=== PATIENT | male | born 1975 | race Caucasian/White ===

== ENCOUNTER 2016-05-25 01:54 | Emergency (ER) | payer OTHER ==
--- NOTE | 2016-05-25 06:30 | DIAGNOSTIC IMAGING REPORT ---
PROCEDURE: XR CHEST 2 VIEW INDICATION: CHEST PAIN TECHNIQUE: PA and lateral view. COMPARISON: None. FINDINGS: Poor inspiration with minor left basilar atelectasis. Cardiovascular structures are normal. Bony thorax is unremarkable. IMPRESSION: 1. Poor inspiration with minor left basilar atelectasis.
--- NOTE | 2016-05-25 07:22 | DIAGNOSTIC IMAGING REPORT ---
PROCEDURE: US ABDOMEN ULTRASOUND-LIMITED INDICATION: RUQ PAIN, initial encounter TECHNIQUE: Pate scale and color Doppler sonographic images of the abdomen were obtained. COMPARISON: None. FINDINGS: Normal gallbladder and CBD (4.2 mm). Liver and pancreas are normal. Aorta and IVC are patent. Right kidney measures 10.1 cm and has a normal appearance. IMPRESSION: 1. Negative right upper quadrant ultrasound
--- NOTE | 2016-05-25 07:30 | DIAGNOSTIC IMAGING REPORT ---
PROCEDURE: CT ABD/PELVIS WITH CONTRAST CLINICAL INDICATION: Right upper quadrant ultrasound TECHNIQUE: 135 ml of Isovue 300 were injected intravenously and axial images were obtained of the entire abdomen and pelvis with sagittal and coronal reformations. COMPARISON: Right upper quadrant ultrasound 05/25/2016. FINDINGS: ABDOMEN: Mild bibasilar scarring/atelectasis. Normal heart size. Liver, gallbladder, pancreas, spleen (splenule), adrenal glands and kidneys are unremarkable. Normal abdominal aorta. There is some thickening of the gastric wall. Nonspecific bowel gas pattern. PELVIS: Status post appendectomy. Distended bladder. Normal prostate. No pelvic mass, inflammatory changes or free fluid. Moderate L5-S1 degenerative changes. IMPRESSION: 1. Mild thickening of the gastric wall. Consider gastritis. 2. Appendectomy 3. Distended bladder 4. Results discussed with Dr. Hood All CT scans at this facility use dose modulation, iterative reconstruction, and/or weight-based dosing when appropriate to reduce radiation dose to as low as reasonably achievable.
--- NOTE | 2016-05-25 07:44 | ED CLINICAL REPORT ---
Clinical Report - Physicians/Mid Levels [facility] [address] [place] [address] 05/25/2016 1:56 Patient: ANGIE PAUL Time Seen: 02:18 May 25 2016. Arrived- By private vehicle. Historian- patient. CPT: ER phys charges level 4 (#[id number]). HISTORY OF PRESENT ILLNESS Chief Complaint: ABDOMINAL PAIN. At its maximum, severity described as 8 / 10. When seen in the E.D., severity described as 8 / 10. Modifying factors- worsened by movement. Relieved by rest. This started last night This is a new problem and onset was abrupt. (1700). He has had abdominal pain. ( denies any n/v/d). and is still present. It is described as "pain" and it is described as located in the right upper quadrant and epigastric area. The patient has had nausea and loss of appetite. No vomiting or diarrhea. No recent travel. Similar symptoms previously: Several times, milder (for 2 years). Evaluation/treatment: sonogram. Diagnosis: (Fatty liver). Recent medical care: Not recently seen/assessed. REVIEW OF SYSTEMS No constipation, black stools, hematemesis, difficulty with urination or urinary frequency. No fever, sore throat, chest pain, difficulty breathing or cough. No joint pain, skin rash, chills or back pain. All systems otherwise negative, except as recorded above. PAST HISTORY Appendectomy. Problems: no known problems. Medications: None. Allergies: Amoxicillin. SOCIAL HISTORY Never smoker. No alcohol use or drug use. ADDITIONAL NOTES The nursing notes have been reviewed. PHYSICAL EXAM Vital Signs: 05/25/2016 02:06 BP: 160/96. HR: 87. RR: 22. O2 saturation: 100%. Temp: 97.9 F. Appearance: Alert. Appears to be in pain. Patient in moderate distress. Eyes: Eyes normal inspection. ENT: Pharynx normal. Neck: Normal inspection. CVS: Normal heart rate and rhythm. Heart sounds normal. Pulses normal. Respiratory: No respiratory distress. Breath sounds normal. Chest nontender. Abdomen: Soft. Moderate tenderness in the upper abdomen, right upper quadrant and epigastric area with guarding present. Positive Mariano's sign. Abnormal bowel sounds: diminished. No mass. Back: Normal inspection. No CVA tenderness. Skin: Skin warm. Normal skin color. No rash. Extremities: Extremities exhibit normal ROM. No calf tenderness. No lower extremity edema. Neuro: Oriented X 3. No motor deficit. No sensory deficit. Reflexes normal. LABS, X-RAYS, AND EKG Abdominal Sonogram: No acute disease. Laboratory Tests: CBC w Diff: (SULMA: 05/25/2016 02:40) ( MsgRcvd 05/25/2016 02:49) Final results Test Result Flag Units (Reference) WHITE BLOOD COUNT 7.2 K/uL (4.5-11.5) RED BLOOD COUNT 4.53 M/uL (4.50-5.90) HEMOGLOBIN 13.9 gm/dL (13.5-17.5) HEMATOCRIT 40.5 L % (41.0-53.0) MEAN CELL VOLUME 90 fL (80-100) MEAN CORPUSCULAR HGB 31 pg (26-34) MEAN CORPUSCULAR HGB CONC 34 g/dL (31-37) RED CELL DISTRIBUTION WIDTH 13.1 % (11.6-14.8) PLATELET COUNT 291 K/uL (150-400) NEUTROPHIL % 45.3 L % (50-75) LYMPH % 38.6 % (25-40) MONO % 9.6 % (3-14) EOSINOPHIL % 5.7 H % (0-4) BASOPHIL % 0.8 % (0-2) [id number]: (SULMA: 05/25/2016 02:40) ( Mscvd 05/25/2016 03:42) Final results Test Result Flag Units (Reference) D-DIMER QUANTITATIVE < 0.27 L ug/mLFEU (0.27-0.52) The primary value of this quantitative assay relates toits negative predictive value (i.e. exclusion) of pulmonaryembolism/deep vein thrombosis/DIC.Elevated levels of d-dimer may also occur with:, age, cancer, inflammation, liver disease,post-op, infection, hematoma, coronary disease, peripheralarteriopathy, bleeding disorders and thrombolytic treatment.Results should be correlated with other clinical andradiological data.Testing Methodology: Latex Immunoassay [id number]: (SULMA: 05/25/2016 02:40) ( MsgRcvd 05/25/2016 03:51) Final results Test Result Flag Units (Reference) C-REACTIVE PROTEIN < 0.2 mg/dL (0.0-0.9) CMP: (SULMA: 05/25/2016 02:40) ( MsgRcvd 05/25/2016 03:18) Final results Test Result Flag Units (Reference) GLUCOSE 95 mg/dL (70-110) BUN 14 mg/dL (7-18) CREATININE 0.9 mg/dL (0.6-1.3) Estimated GFR >60 mL/min Estimated GFR- >60 mL/min Note: Persistent reduction over 3 months in eGFR<60 mL/min/1.73 m2 defines CKD. Patients with eGFR values>=60 mL/min/1.73 m2 may also have CKD if evidence ofpersistent proteinuria. Additional information may be foundat www.kidney.org. SODIUM 143 mmol/L (136-145) POTASSIUM 3.6 mmol/L (3.5-5.1) CHLORIDE 105 mmol/L (98-107) CARBON DIOXIDE 25 mmol/L (21-32) CALCIUM 8.6 mg/dL (8.5-10.1) TOTAL PROTEIN 7.6 g/dL (6.4-8.2) ALBUMIN 4.1 g/dL (3.3-5.0) BILIRUBIN, TOTAL 0.4 mg/dL (0.0-1.0) ALKALINE PHOSPHATASE 85 U/L (46-116) AST (SGOT) 16 U/L (15-37) ALT (SGPT) 32 U/L (12-78) LIPASE 110 U/L (73-393) AMYLASE 28 U/L (25-115) . PROGRESS AND PROCEDURES Course of Care: IV NS Demerol 12.5 mg IV times 3 Phenergan 12.5 mg IV White GI cocktail and is some better. Protonix 40 mg PO Carafate 20 ml po Patient is stable. Symptoms better. Patient/family counseled. Disposition: Discharged. Condition: stable. CLINICAL IMPRESSION Acute gastritis. No alcoholic gastritis or hemorrhagic gastritis. INSTRUCTIONS Avoid alcohol and NSAIDS. NSAIDS include aspirin, ibuprofen (Advil) and naproxen (Aleve). Avoid spicy foods. caffeine. Warnings: Further evaluation is necessary. GENERAL WARNINGS: Return or contact your physician immediately if your condition worsens or changes unexpectedly, if not improving as expected, or if other problems arise. Prescription Medications: Hydrocodone/APAP 5mg/325mg: take 1 to 2 orally every 6 hours as needed for pain. Dispense fifteen (15). No refills. Carafate 1 gm tablets: take 1 orally four times daily (1 hour before meals and at bedtime). Dispense sixty (60). No refills. Substitution is permissible. Prilosec 40 mg capsules: take 1 capsule orally every day for 10 days. Dispense ten (10). No refill. Substitution is permissible. Follow-up: Follow up with your doctor in five days. Call for an appointment. Understanding of the discharge instructions verbalized by patient and family. (Electronically signed by Ba Hood MD 05/27/2016 23:11)
--- NOTE | 2016-05-25 07:44 | ED ORDER SUMMARY ---
..... Patient: ANGIE PAUL OrderSheet [facility] VisitID: [id number] [address] [place] [address] 40y, M Registration Date/Time: 05/25/2016 ORDER SHEET Weight: 108.8 kg (stated) Allergies: Amoxicillin GENERAL ORDERS: US Abdomen Limited (Yes) Urgent (02:25 05/25/2016 Leyla WILD) (Ack 2:53 ALawrence ER Tech1) (3:02 TLewis R.N.) CBC w Diff Urgent (02:26 05/25/2016 Leyla WILD) (2:40 TLewis R.N.) CMP Urgent (02:26 05/25/2016 Leyla WILD) (2:40 TLewis R.N.) Amylase Urgent (02:26 05/25/2016 Leyla WILD) (2:40 TLewis R.N.) Lipase Urgent (02:26 05/25/2016 Leyla WILD) (2:40 TLewis R.N.) D-Dimer Urgent (03:27 05/25/2016 Leyla WILD) (3:32 ALawrence ER Tech1) CRP Urgent (03:27 05/25/2016 Leyla WILD) (3:32 ALawrence ER Tech1) Chest 2V Urgent (03:53 05/25/2016 Leyla WILD) (4:01 TLewis R.N.) CT Abd/Pel w Cont (No) (N/A) Urgent (05:21 05/25/2016 Leyla WILD) (Ack 5:28 ALawrence ER Tech1) (6:58 TLewis R.N.) MEDICATION ORDERS: Phenergan IV 12.5 mg (NOW) (02:26 05/25/2016 Leyla WILD) (2:37 TLewis R.N.) GI Cocktail WHITE PO 50 mL (NOW) (04:33 05/25/2016 Leyla WILD) (4:40 TLewis R.N.) Carafate PO 20 ml (NOW) (07:44 05/25/2016 Leyla WILD) (Ack 7:48 Josefina R.N.) (8:02 Josefina R.N.) Protonix PO 40 mg (NOW) (07:44 05/25/2016 Lelya WILD) (Ack 7:48 Josefina R.N.) (8:01 Josefina R.N.) IV FLUIDS: IV NS : initial bolus none -, then 250 mL/hr for 4h (NOW); Routine (02:25 05/25/2016 Leyla WILD) (2:51 TLewis R.N.) Demerol IV 12.5 mg (NOW) (Sched q10m for X2); Routine (prn) (Sched q10m for X2) (02:25 05/25/2016 Leyla WILD) (2:40 TLewis R.N.) Demerol IV 12.5 mg (NOW) (Sched q10m for X2); Routine (prn) (02:35 05/25/2016 Leyla WILD) (3:36 TLewis R.N.) Demerol IV 12.5 mg (NOW) (05:21 05/25/2016 Leyla WILD) (5:25 TLewis R.N.) ORDER SHEET NOTES: [Electronically signed by Angie Canales R.N. (08:44 05/25/2016)] [Electronically signed by Ba Hood MD (23:11 05/27/2016)] [Electronically locked/signed by Angie Canales R.N. (08:44 05/25/2016)]
--- NOTE | 2016-05-25 07:44 | ED CLINICAL REPORT ---
Clinical Report - Physicians/Mid Levels [facility] [address] [place] [address] 05/25/2016 1:56 Patient: ANGIE PAUL Time Seen: 02:18 May 25 2016. Arrived- By private vehicle. Historian- patient. CPT: ER phys charges level 4 (#[id number]). HISTORY OF PRESENT ILLNESS Chief Complaint: ABDOMINAL PAIN. At its maximum, severity described as 8 / 10. When seen in the E.D., severity described as 8 / 10. Modifying factors- worsened by movement. Relieved by rest. This started last night This is a new problem and onset was abrupt. (1700). He has had abdominal pain. ( denies any n/v/d). and is still present. It is described as "pain" and it is described as located in the right upper quadrant and epigastric area. The patient has had nausea and loss of appetite. No vomiting or diarrhea. No recent travel. Similar symptoms previously: Several times, milder (for 2 years). Evaluation/treatment: sonogram. Diagnosis: (Fatty liver). Recent medical care: Not recently seen/assessed. REVIEW OF SYSTEMS No constipation, black stools, hematemesis, difficulty with urination or urinary frequency. No fever, sore throat, chest pain, difficulty breathing or cough. No joint pain, skin rash, chills or back pain. All systems otherwise negative, except as recorded above. PAST HISTORY Appendectomy. Problems: no known problems. Medications: None. Allergies: Amoxicillin. SOCIAL HISTORY Never smoker. No alcohol use or drug use. ADDITIONAL NOTES The nursing notes have been reviewed. PHYSICAL EXAM Vital Signs: 05/25/2016 02:06 BP: 160/96. HR: 87. RR: 22. O2 saturation: 100%. Temp: 97.9 F. Appearance: Alert. Appears to be in pain. Patient in moderate distress. Eyes: Eyes normal inspection. ENT: Pharynx normal. Neck: Normal inspection. CVS: Normal heart rate and rhythm. Heart sounds normal. Pulses normal. Respiratory: No respiratory distress. Breath sounds normal. Chest nontender. Abdomen: Soft. Moderate tenderness in the upper abdomen, right upper quadrant and epigastric area with guarding present. Positive Mariano's sign. Abnormal bowel sounds: diminished. No mass. Back: Normal inspection. No CVA tenderness. Skin: Skin warm. Normal skin color. No rash. Extremities: Extremities exhibit normal ROM. No calf tenderness. No lower extremity edema. Neuro: Oriented X 3. No motor deficit. No sensory deficit. Reflexes normal. LABS, X-RAYS, AND EKG Abdominal Sonogram: No acute disease. Laboratory Tests: CBC w Diff: (SULMA: 05/25/2016 02:40) ( MsgRcvd 05/25/2016 02:49) Final results Test Result Flag Units (Reference) WHITE BLOOD COUNT 7.2 K/uL (4.5-11.5) RED BLOOD COUNT 4.53 M/uL (4.50-5.90) HEMOGLOBIN 13.9 gm/dL (13.5-17.5) HEMATOCRIT 40.5 L % (41.0-53.0) MEAN CELL VOLUME 90 fL (80-100) MEAN CORPUSCULAR HGB 31 pg (26-34) MEAN CORPUSCULAR HGB CONC 34 g/dL (31-37) RED CELL DISTRIBUTION WIDTH 13.1 % (11.6-14.8) PLATELET COUNT 291 K/uL (150-400) NEUTROPHIL % 45.3 L % (50-75) LYMPH % 38.6 % (25-40) MONO % 9.6 % (3-14) EOSINOPHIL % 5.7 H % (0-4) BASOPHIL % 0.8 % (0-2) [id number]: (SULMA: 05/25/2016 02:40) ( Mscvd 05/25/2016 03:42) Final results Test Result Flag Units (Reference) D-DIMER QUANTITATIVE < 0.27 L ug/mLFEU (0.27-0.52) The primary value of this quantitative assay relates toits negative predictive value (i.e. exclusion) of pulmonaryembolism/deep vein thrombosis/DIC.Elevated levels of d-dimer may also occur with:, age, cancer, inflammation, liver disease,post-op, infection, hematoma, coronary disease, peripheralarteriopathy, bleeding disorders and thrombolytic treatment.Results should be correlated with other clinical andradiological data.Testing Methodology: Latex Immunoassay [id number]: (SULMA: 05/25/2016 02:40) ( MsgRcvd 05/25/2016 03:51) Final results Test Result Flag Units (Reference) C-REACTIVE PROTEIN < 0.2 mg/dL (0.0-0.9) CMP: (SULMA: 05/25/2016 02:40) ( MsgRcvd 05/25/2016 03:18) Final results Test Result Flag Units (Reference) GLUCOSE 95 mg/dL (70-110) BUN 14 mg/dL (7-18) CREATININE 0.9 mg/dL (0.6-1.3) Estimated GFR >60 mL/min Estimated GFR- >60 mL/min Note: Persistent reduction over 3 months in eGFR<60 mL/min/1.73 m2 defines CKD. Patients with eGFR values>=60 mL/min/1.73 m2 may also have CKD if evidence ofpersistent proteinuria. Additional information may be foundat www.kidney.org. SODIUM 143 mmol/L (136-145) POTASSIUM 3.6 mmol/L (3.5-5.1) CHLORIDE 105 mmol/L (98-107) CARBON DIOXIDE 25 mmol/L (21-32) CALCIUM 8.6 mg/dL (8.5-10.1) TOTAL PROTEIN 7.6 g/dL (6.4-8.2) ALBUMIN 4.1 g/dL (3.3-5.0) BILIRUBIN, TOTAL 0.4 mg/dL (0.0-1.0) ALKALINE PHOSPHATASE 85 U/L (46-116) AST (SGOT) 16 U/L (15-37) ALT (SGPT) 32 U/L (12-78) LIPASE 110 U/L (73-393) AMYLASE 28 U/L (25-115) . PROGRESS AND PROCEDURES Course of Care: IV NS Demerol 12.5 mg IV times 3 Phenergan 12.5 mg IV White GI cocktail and is some better. Protonix 40 mg PO Carafate 20 ml po Patient is stable. Symptoms better. Patient/family counseled. Disposition: Discharged. Condition: stable. CLINICAL IMPRESSION Acute gastritis. No alcoholic gastritis or hemorrhagic gastritis. INSTRUCTIONS Avoid alcohol and NSAIDS. NSAIDS include aspirin, ibuprofen (Advil) and naproxen (Aleve). Avoid spicy foods. caffeine. Warnings: Further evaluation is necessary. GENERAL WARNINGS: Return or contact your physician immediately if your condition worsens or changes unexpectedly, if not improving as expected, or if other problems arise. Prescription Medications: Hydrocodone/APAP 5mg/325mg: take 1 to 2 orally every 6 hours as needed for pain. Dispense fifteen (15). No refills. Carafate 1 gm tablets: take 1 orally four times daily (1 hour before meals and at bedtime). Dispense sixty (60). No refills. Substitution is permissible. Prilosec 40 mg capsules: take 1 capsule orally every day for 10 days. Dispense ten (10). No refill. Substitution is permissible. Follow-up: Follow up with your doctor in five days. Call for an appointment. Understanding of the discharge instructions verbalized by patient and family. (Electronically signed by Ba Hood MD 05/27/2016 23:11)
--- NOTE | 2016-05-25 07:44 | ED NURSING NOTES ---
Clinical Report - Nurses [facility] [address] [place] [address] 05/25/2016 1:56 Patient: ANGIE PAUL TRIAGE Triage time 02:07. Acuity: LEVEL 3. Chief Complaint: ABDOMINAL PAIN. --02:17 Pedro Aquino R.N. 02:06 05/25/16. BP: 160/96. HR: 87. RR: 22. O2 saturation: 100%. Temp: 97.9 F. Pain level now 11/01. --02:17 Pedro Aquino R.N. Weight: 108.8 kg stated. Height/Length: 68 inches Per Patient. BMI: 36.5. --02:15 Pedro Aquino R.N. Medications None. --02:15 Pedro Aquino R.N. Allergies Amoxicillin. --02:15 Pedro Aquino R.N. Medication/allergy information source: the patient. --02:17 Pedro Aquino R.N. History Arrived by private vehicle. Historian: patient. Accompanied by family. Primary physician (Dr. Bimal Suazo [facility]). This started today. This is a new problem and onset was abrupt. (1700). He has had abdominal pain. ( denies any n/v/d). 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 SOCIAL HX: Never smoker. No alcohol use or drug use. --02:17 Pedro Aquino R.N. PROBLEMS: no known problems. ADDITIONAL SURGERIES: Appendectomy. --02:17 Pedro Aquino R.N. Interventions ID band on patient. To treatment room. --02:17 Pedro Aquino R.N. PHYSICAL ASSESSMENT ( Sharp stabbing pain in the upper right quad that started around 1700 today. Pt denies any injury, n/v/d.). GENERAL / NEURO / PSYCH: Alert. Oriented X 4. Appears in pain. HEENT: Mucous membranes are pink. RESPIRATORY: Respirations not labored. Breath sounds within normal limits. CVS: Normal sinus rhythm noted. Capillary refill less than 2 seconds. GI / : Abdomen soft. Bowel sounds within normal limits. Normal genitalia. Stool color normal. SKIN: Skin is warm and dry. --02:18 Pedro Aquino R.N. NURSING PROGRESS NOTES Patient gowned. Two patient identifiers checked. Call light placed in reach. Side rails up x 1. Bed placed in lowest position. Brakes of bed on. --02:18 Pedro Aquino R.N. 02:36 05/25/2016 Site #1 started via IV in the right antecubital space with an 20g angiocath, with aseptic technique and good blood return; one attempt. Blood drawn: rainbow set. Labeled in the presence of the patient and sent to the lab. Saline lock flushed with 10 mL saline. --02:36 Pedro Aquino R.N. 02:37 05/25/2016 PHENERGAN (Promethazine HCl) IVP 12.5 mg given over 1 hour(s) via site #1. Allergies verified and confirmed 5 rights. IV patency established. IV site checked: no pain, redness, or swelling. IV flushed thoroughly pre- and post-medication administration. IVP given by RN. --02:37 Pedro Aquino R.N. 02:40 05/25/2016 Demerol (Meperidine HCl) IVP 12.5 mg given over 1 minute(s) via site #1. Allergies verified and confirmed 5 rights. IV patency established. IV site checked: no pain, redness, or swelling. IV flushed thoroughly pre- and post-medication administration. IVP given by RN. --02:40 Pedro Aquino R.N. ( improved pain). --02:51 Pedro Aquino R.N. 02:50 05/25/16. BP: 116/70. HR: 60. RR: 15. O2 saturation: 97%. Pain level now 06/01. --02:51 Pedro Aquino R.N. 02:51 05/25/2016 Started bag #1 1000 mL IV Fluids IV NS (Saline); at 250 mL/hr over 4 hour(s) via site #1 via IV pump. Allergies verified and confirmed 5 rights. IV patency established. IV site checked: no pain, redness, or swelling. IV flushed thoroughly pre- and post-medication administration. --02:51 Pedro Aquino R.N. ( Ultrasound is in the room.). --03:02 Pedro Aquino R.N. 03:36 05/25/2016 Demerol (Meperidine HCl) IVP 12.5 mg given over 1 minute(s) via site #1. Allergies verified and confirmed 5 rights. IV patency established. IV site checked: no pain, redness, or swelling. IV flushed thoroughly pre- and post-medication administration. IVP given by RN. --03:36 Pedro Aquino R.N. ( pt was given more pain meds due to an increase of pain during ultrasound. pt is laying in bed with at bedside.). --03:37 Pedro Aquino R.N. 03:36 05/25/16. BP: 130/89. HR: 74. RR: 15. O2 saturation: 97%. Pain level now 5/10. --03:37 Pedro Aquino R.N. Patient transported to radiology. (04:01). --04:01 Pedro Aquino R.N. Patient returned from radiology. (04:04). --04:04 Pedro Aquino R.N. 04:40 05/25/2016 GI COCKTAIL WHITE (Simethicone) PO 50 mL given. Allergies verified and confirmed 5 rights. --04:40 Pedro Aquino R.N. 04:40 05/25/16. BP: 129/85. HR: 75. RR: 18. O2 saturation: 97%. Pain level now 5/10. --04:41 Pedro Aquino R.N. 05:25 05/25/2016 Demerol (Meperidine HCl) IVP 12.5 mg given over 1 minute(s) via site #1. Allergies verified and confirmed 5 rights. IV patency established. IV site checked: no pain, redness, or swelling. IV flushed thoroughly pre- and post-medication administration. IVP given by RN. --05:25 Pedro Aquino R.N. ( Pt and were told about the delay in radiology and that the pt needs an CT scan for further diagnostic testing. Pt's pain was improved.). --06:09 Pedro Aquino R.N. Patient transported to CT. (06:49). --06:49 Pedro Aquino R.N. 07:26 05/25/16. The patient is calm. Overall patient status is the same- he states feels the same (pain is worse with movement). SKIN: Skin is warm and dry. --07:26 Angie Canales R.N. 07:23 05/25/16. BP: 128/89. HR: 73. RR: 16. O2 saturation: 97%. Temp: 98 F (oral). Pain level now: 10/01. --07:26 Angie Canales R.N. 07:55. The patient is calm and resting quietly. Overall patient status is improved- he states feels the same. SKIN: Skin is warm and dry. --08:02 Angie Canales R.N. DISPOSITION / DISCHARGE 08:05/25/2016 Site #1 removed upon discharge. Catheter intact. Bandaid applied. --08:01 Angie Canales R.N. 07:55 05/25/16. BP: 134/82. HR: 67. RR: 16. O2 saturation: 97% on room air. Temp: 98.4 F (oral). Pain level now: 06/01. --08:01 Angie Canales R.N. Departure time: 0755. Condition at departure: improved and stable. No learning barriers present. Discharge instructions provided and reviewed with the patient. Reviewed medication(s). Prescription(s) given to the patient. Patient verbalized understanding. Written instructions provided in Mongolian. The patient was discharged home and accompanied by spouse. He left the Emergency Department ambulatory and via private vehicle. --08:01 Angie Canales R.N. 08:01 05/25/2016 Protonix (Pantoprazole Sodium) PO Tablets 40 mg given. Allergies verified and confirmed 5 rights. --08:01 Angie Canales R.N. 08:02 05/25/2016 Carafate (Sucralfate) PO Oral Suspension 2 gm given. Allergies verified and confirmed 5 rights. --08:02 Angei Canales R.N. Locked/Released at 05/25/2016 8:44 by Angie Canales R.N.
--- NOTE | 2016-05-25 07:44 | ED ORDER SUMMARY ---
..... Patient: ANGIE PAUL OrderSheet [facility] VisitID: [id number] [address] [place] [address] 40y, M Registration Date/Time: 05/25/2016 ORDER SHEET Weight: 108.8 kg (stated) Allergies: Amoxicillin GENERAL ORDERS: US Abdomen Limited (Yes) Urgent (02:25 05/25/2016 Leyla WILD) (Ack 2:53 ALawrence ER Tech1) (3:02 TLewis R.N.) CBC w Diff Urgent (02:26 05/25/2016 Leyla WILD) (2:40 TLewis R.N.) CMP Urgent (02:26 05/25/2016 Leyla WILD) (2:40 TLewis R.N.) Amylase Urgent (02:26 05/25/2016 Leyla WILD) (2:40 TLewis R.N.) Lipase Urgent (02:26 05/25/2016 Leyla WILD) (2:40 TLewis R.N.) D-Dimer Urgent (03:27 05/25/2016 Leyla WILD) (3:32 ALawrence ER Tech1) CRP Urgent (03:27 05/25/2016 Leyla WILD) (3:32 ALawrence ER Tech1) Chest 2V Urgent (03:53 05/25/2016 Leyla WILD) (4:01 TLewis R.N.) CT Abd/Pel w Cont (No) (N/A) Urgent (05:21 05/25/2016 Leyla WILD) (Ack 5:28 ALawrence ER Tech1) (6:58 TLewis R.N.) MEDICATION ORDERS: Phenergan IV 12.5 mg (NOW) (02:26 05/25/2016 Leyla WILD) (2:37 TLewis R.N.) GI Cocktail WHITE PO 50 mL (NOW) (04:33 05/25/2016 Leyla WILD) (4:40 TLewis R.N.) Carafate PO 20 ml (NOW) (07:44 05/25/2016 Leyla WILD) (Ack 7:48 Josefina R.N.) (8:02 Josefina R.N.) Protonix PO 40 mg (NOW) (07:44 05/25/2016 Leyla WILD) (Ack 7:48 Josefina R.N.) (8:01 Josefina R.N.) IV FLUIDS: IV NS : initial bolus none -, then 250 mL/hr for 4h (NOW); Routine (02:25 05/25/2016 Leyla WILD) (2:51 TLewis R.N.) Demerol IV 12.5 mg (NOW) (Sched q10m for X2); Routine (prn) (Sched q10m for X2) (02:25 05/25/2016 Leyla WILD) (2:40 TLewis R.N.) Demerol IV 12.5 mg (NOW) (Sched q10m for X2); Routine (prn) (02:35 05/25/2016 Leyla WILD) (3:36 TLewis R.N.) Demerol IV 12.5 mg (NOW) (05:21 05/25/2016 Leyla WILD) (5:25 TLewis R.N.) ORDER SHEET NOTES: [Electronically signed by Angie Canales R.N. (08:44 05/25/2016)] [Electronically signed by Ba Hood MD (23:11 05/27/2016)] [Electronically locked/signed by Angie Canales R.N. (08:44 05/25/2016)]
--- NOTE | 2016-05-27 23:11 | ED MED RECONCILIATION SUMMARY ---
Patient: ANGIE PAUL Medication Reconciliation Report [facility] VisitID: [id number] [address] [place] [address] 40y, M Registration Date/Time: 05/25/2016 Weight: 108.8 kg Height/Length: 68 in. BMI: 36.5 ALLERGIES: Amoxicillin The patient's Home Medications are listed below: NONE. The source(s) of the original Home Medication information: patient The following Medications were given to the patient in the Emergency Department: PHENERGAN [IVP] IVP 12.5 mg, administered: 05/25/2016 2:37:00 AM Demerol [IVP] IVP 12.5 mg, administered: 05/25/2016 2:40:00 AM IV NS IV Fluids bolus 0, then 250 mL/hr, administered: 05/25/2016 2:51:00 AM Demerol [IVP] IVP 12.5 mg, administered: 05/25/2016 3:36:00 AM GI COCKTAIL WHITE [PO] PO 50 mL, administered: 05/25/2016 4:40:00 AM Demerol [IVP] IVP 12.5 mg, administered: 05/25/2016 5:25:00 AM Protonix [PO] PO 40 mg, administered: 05/25/2016 8:01:00 AM Carafate [PO] PO 2 gm, administered: 05/25/2016 8:02:00 AM The following Medications were prescribed to the patient: Hydrocodone/APAP 5mg/325mg: take 1 to 2 orally every 6 hours as needed for pain. Dispense fifteen (15). No refills. -- Ba Hood MD Carafate 1 gm tablets: take 1 orally four times daily (1 hour before meals and at bedtime). Dispense sixty (60). No refills. Substitution is permissible. -- Ba Hood MD Prilosec 40 mg capsules: take 1 capsule orally every day for 10 days. Dispense ten (10). No refill. Substitution is permissible. -- Ba Hood MD
--- NOTE | 2016-05-27 23:11 | ED MAR SUMMARY ---
..... Medication Administration Record [facility] [address] [place] [address] Patient: ANGIE PAUL Visit ID: [id number] 40y, M Weight: 108.8 kg Height/Length: 68 in BMI: 36.5 ALLERGIES: Amoxicillin Given 02:37 05/25/2016 Pedro Aquino R.N. Medication Administered: PHENERGAN [IVP] (PROMETHAZINE HCL), Dose: 12.5 mg IVP over 1 hour(s), Site: #1 right AC. Medication Ordered: Phenergan IV 12.5 mg (NOW). Given 02:40 05/25/2016 Pedro Aquino R.N. Medication Administered: DEMEROL [IVP] (MEPERIDINE HCL), Dose: 12.5 mg IVP over 1 minute(s), Site: #1 right AC. Medication Ordered: Demerol IV 12.5 mg (NOW) (Sched q10m for X2); Routine (prn) 1 of 2. Start 02:51 05/25/2016 Pedro Aquino R.N. Medication Administered: IV NS (SALINE), Dose: IV Fluids over 4 hour(s), Rate: 250 mL/hr, Dispensed: 1000 mL bag, Site: #1 right AC. Medication Ordered: IV NS : initial bolus none -, then 250 mL/hr for 4h (NOW); Routine. Given 03:36 05/25/2016 Pedro Aquino R.N. Medication Administered: DEMEROL [IVP] (MEPERIDINE HCL), Dose: 12.5 mg IVP over 1 minute(s), Site: #1 right AC. Medication Ordered: Demerol IV 12.5 mg (NOW) (Sched q10m for X2); Routine (prn) 2 of 2. Given 04:40 05/25/2016 Pedro Aquino R.N. Medication Administered: GI COCKTAIL WHITE [PO] (SIMETHICONE), Dose: 50 mL PO. Medication Ordered: GI Cocktail WHITE PO 50 mL (NOW). Given 05:25 05/25/2016 Pedro Aquino R.N. Medication Administered: DEMEROL [IVP] (MEPERIDINE HCL), Dose: 12.5 mg IVP over 1 minute(s), Site: #1 right AC. Medication Ordered: Demerol IV 12.5 mg (NOW). Given 08:05/25/2016 Angie Canales RKaden. Medication Administered: PROTONIX [PO] (PANTOPRAZOLE SODIUM), Dose: 40 mg Tablets PO. Medication Ordered: Protonix PO 40 mg (NOW). Given 08:05/25/2016 Angie Canales, R.N. Medication Administered: CARAFATE [PO] (SUCRALFATE), Dose: 2 gm Oral Suspension PO. Medication Ordered: Carafate PO 20 ml (NOW).
--- NOTE | 2016-05-27 23:11 | ED MAR SUMMARY ---
..... Medication Administration Record [facility] [address] [place] [address] Patient: ANGIE PAUL Visit ID: [id number] 40y, M Weight: 108.8 kg Height/Length: 68 in BMI: 36.5 ALLERGIES: Amoxicillin Given 02:37 05/25/2016 Pedro Aquino R.N. Medication Administered: PHENERGAN [IVP] (PROMETHAZINE HCL), Dose: 12.5 mg IVP over 1 hour(s), Site: #1 right AC. Medication Ordered: Phenergan IV 12.5 mg (NOW). Given 02:40 05/25/2016 Pedro Aquino R.N. Medication Administered: DEMEROL [IVP] (MEPERIDINE HCL), Dose: 12.5 mg IVP over 1 minute(s), Site: #1 right AC. Medication Ordered: Demerol IV 12.5 mg (NOW) (Sched q10m for X2); Routine (prn) 1 of 2. Start 02:51 05/25/2016 Pedro Aquino R.N. Medication Administered: IV NS (SALINE), Dose: IV Fluids over 4 hour(s), Rate: 250 mL/hr, Dispensed: 1000 mL bag, Site: #1 right AC. Medication Ordered: IV NS : initial bolus none -, then 250 mL/hr for 4h (NOW); Routine. Given 03:36 05/25/2016 Pedro Aquino R.N. Medication Administered: DEMEROL [IVP] (MEPERIDINE HCL), Dose: 12.5 mg IVP over 1 minute(s), Site: #1 right AC. Medication Ordered: Demerol IV 12.5 mg (NOW) (Sched q10m for X2); Routine (prn) 2 of 2. Given 04:40 05/25/2016 Pedro Aquino R.N. Medication Administered: GI COCKTAIL WHITE [PO] (SIMETHICONE), Dose: 50 mL PO. Medication Ordered: GI Cocktail WHITE PO 50 mL (NOW). Given 05:25 05/25/2016 Pedro Aquino R.N. Medication Administered: DEMEROL [IVP] (MEPERIDINE HCL), Dose: 12.5 mg IVP over 1 minute(s), Site: #1 right AC. Medication Ordered: Demerol IV 12.5 mg (NOW). Given 08:05/25/2016 Angie Canales RKaden. Medication Administered: PROTONIX [PO] (PANTOPRAZOLE SODIUM), Dose: 40 mg Tablets PO. Medication Ordered: Protonix PO 40 mg (NOW). Given 08:05/25/2016 Angie Canales, R.N. Medication Administered: CARAFATE [PO] (SUCRALFATE), Dose: 2 gm Oral Suspension PO. Medication Ordered: Carafate PO 20 ml (NOW).
--- NOTE | 2016-05-27 23:11 | ED DISCHARGE INSTRUCTIONS ---
Patient: ANGIE PAUL General Instructions [facility] VisitID: [id number] [place] [address] 40y, M Registration Date/Time: 05/25/2016 Acute gastritis. No alcoholic gastritis or hemorrhagic gastritis. INSTRUCTIONS Avoid alcohol and NSAIDS. NSAIDS include aspirin, ibuprofen (Advil) and naproxen (Aleve). Avoid spicy foods. caffeine. Warnings: Further evaluation is necessary. GENERAL WARNINGS: Return or contact your physician immediately if your condition worsens or changes unexpectedly, if not improving as expected, or if other problems arise. Prescription Medications: Hydrocodone/APAP 5mg/325mg: take 1 to 2 orally every 6 hours as needed for pain. Dispense fifteen (15). No refills. Carafate 1 gm tablets: take 1 orally four times daily (1 hour before meals and at bedtime). Dispense sixty (60). No refills. Substitution is permissible. Prilosec 40 mg capsules: take 1 capsule orally every day for 10 days. Dispense ten (10). No refill. Substitution is permissible. Follow-up: Follow up with your doctor in five days. Call for an appointment. Understanding of the discharge instructions verbalized by patient and family. ADDITIONAL INFORMATION Gastritis Versus Ulcer (No Antibiotic Tx) The symptoms of gastritis and peptic ulcer are very similar. Both can cause a dull ache or burning pain in the upper abdomen. Other symptoms include nausea, vomiting, loss of appetite, and belching or bloating. Blood in the vomit or stools (red or black) is a sign of bleeding in the stomach. This requires immediate medical attention. A Peptic Ulcer is an open sore in the lining of the stomach or duodenum (upper intestine). The most common cause of peptic ulcer disease is a bacterial infection (H pylori) in the stomach. Another common cause is taking anti-inflammatory medications (such as ibuprofen, prednisone, and aspirin). Gastritis is an irritation of the stomach lining. It can be acute (recent) or chronic (lasting a long time). Gastritis can be caused by overuse of alcohol or anti-inflammatory medications (such as aspirin, ibuprofen, prednisone). H pyloriinfection can also cause chronic gastritis. Tests for H pyloriare used to screen for bacterial infection. If no infection is found, ulcer and gastritis can be treated by stopping the cause, such as anti-inflammatory medications, alcohol, caffeine, and tobacco, and treating with antacids plus an acid saundra medication. If H pylori infection is found, antibiotics will be prescribed along with an acid saundra. Persons 55 years and older may undergo other tests before treatment is started. Two common tests are used to evaluate your symptoms. An upper GI series is an x-ray taken after you drink a chalky liquid called barium. This coats the stomach and allows an ulcer to show up on the x-ray. Another test is called endoscopy during which a long thin tube called an endoscope is passed down your throat to the stomach. A camera at the end of the scope allows the doctor to view inside the stomach to check the cause of your symptoms. Home Care: Take the prescribed acid saundra medication for the full course of treatment even if you begin to feel better sooner. This medication can take up to several days to fully control your symptoms. If you cant afford the prescribed medication, you can try [id number] acid blockers, such as Pepcid AC, Tagamet, Zantac, or Aciphex. If these do not relieve your symptoms, a stronger acid-saundra can be tried, such as Prilosec OTC. If you have been prescribed an antibiotic to treat H pyloriinfection, finish the full course of medication. Do so even if you begin to feel better sooner. If you stop the medication too soon, the infection can return and be harder to treat. You can use antacids, such as Tums, Rolaids, Mylanta, or Maalox, for pain. This will be useful the first few days after starting acid blockers when the blockers havent started working yet. Follow the directions on the label. Liquid antacids may work better than tablets. Note that antacids can interfere with absorption of certain medications. Specifically, do not take Tagamet (cimetidine), Zantac (ranitidine), or Carafate (sucralfate) within 1 hour of taking an antacid. Talk with your pharmacist if you have any questions. Although foods do not cause an ulcer, symptoms can be worsened by certain foods. Limit or avoid fatty, fried, and spicy foods, as well as coffee, chocolate, mint, and foods with high acid content such as tomatoes and citrus fruit and juices (orange, grapefruit, lemon). Avoid alcohol, caffeine, and tobacco, which can delay healing. Avoid aspirin and anti-inflammatory medications such as ibuprofen (Advil, Motrin) and naproxen (Naprosyn, Aleve). Acetaminophen (Tylenol) is safe to use. Do not take more than the amount listed on the label. Follow Up with your doctor or as advised. Further testing may be needed. If you do not begin to improve over the next 4 days, contact your doctor. If you had tests, youll be notified of any new findings that affect your care. Get Prompt Medical Attention if any of the following occur: Stomach pain gets worse or moves to the lower right abdomen (appendix area) Chest pain appears or gets worse, or spreads to the back, neck, shoulder, or arm Frequent vomiting (cant keep down liquids) Blood in the stool or vomit (red or black in color) Feeling weak or dizzy, fainting, or trouble breathing Fever of 100.4F (38C) or higher, or as directed by your healthcare provider [place] Diet A bland diet is used for patients with an upset stomach. It consists of foods that are mild and easy to digest. It is better to eat small frequent meals rather than three large meals a day. BEVERAGES OK: Fruit juices, non-caffeinated teas and coffee, non-carbonated haley AVOID: Carbonated beverage, caffeinated tea and coffee, all alcoholic beverages BREAD OK: Refined white, wheat or rye bread, dawson or soda crackers, [place] toast, plain rolls, bagels AVOID: Whole-grain bread CEREAL OK: Refined cereals: cooked or ready to eat AVOID: Whole grain cereals and granola, or those containing bran, seeds or nuts DESSERTS OK: Peanut butter and all others except those to "avoid" AVOID: Chocolate, cocoa, coconut, popcorn, nuts, seeds, jam, marmalade FRUITS OK: Canned, cooked, frozen or fresh fruits without seeds or tough skin AVOID: Olives, skin and seeds of fruit MEATS OK: All fresh or preserved meat, fish and fowl AVOID: Any that are prepared with those spices to "avoid" CHEESE & EGGS OK: Eggs, cottage cheese, cream cheese, other cheeses AVOID: All cheeses made with those spices to "avoid" POTATOES & PASTA OK: Potato, rice, macaroni, noodles, spaghetti AVOID: None SOUPS OK: All soups without heavy seasoning AVOID: Soups made with those spices to "avoid" VEGETABLES OK: Canned, cooked, fresh or frozen mildly flavored vegetables without seeds, skins or coarse fiber AVOID: Vegetables prepared with those spices to "avoid"; skin and seeds of vegetables and those with coarse fiber SPICES OK: Salt, lemon and [employer] juice, vinegar, all extracts, [place], cinnamon, thyme, mace, allspice, paprika AVOID: Coulter powder, cloves, pepper, seed spices, garlic, gravy pickles, highly seasoned salad dressings Omeprazole Magnesium Gastro-resistant tablet What is this medicine? OMEPRAZOLE (oh ME pray zol) prevents the production of acid in the stomach. It is used to treat the symptoms of heartburn. You can buy this medicine without a prescription. This product is not for long-term use, unless otherwise directed by your doctor or health doggy daycare activities director. How should I use this medicine? Take this medicine by mouth. Follow the directions on the product label. If you are taking this medicine without a prescription, take one tablet every day. Do not use for longer than 14 days or repeat a course of treatment more often than every 4 months unless directed by a doctor or healthcare professional. Take your dose at regular intervals every 24 hours. Swallow the tablet whole with a drink of water. Do not crush, break or chew. This medicine works best if taken on an empty stomach 30 minutes before breakfast. If you are using this medicine with the prescription of your doctor or healthcare professional, follow the directions you were given. Do not take your medicine more often than directed. Talk to your music industry internship regarding the use of this medicine in children. Special care may be needed. What side effects may I notice from receiving this medicine? Side effects that you should report to your doctor or health doggy daycare activities director as soon as possible: allergic reactions like skin rash, itching or hives, swelling of the face, lips, or tongue bone, muscle or joint pain breathing problems chest pain or chest tightness dark yellow or brown urine diarrhea dizziness fast, irregular heartbeat feeling faint or lightheaded fever or sore throat muscle spasm palpitations redness, blistering, peeling or loosening of the skin, including inside the mouth seizures tremors unusual bleeding or bruising unusually weak or tired yellowing of the eyes or skin Side effects that usually do not require medical attention (Report these to your doctor or health doggy daycare activities director if they continue or are bothersome.): constipation dry mouth headache loose stools nausea What may interact with this medicine? Do not take this medicine with any of the following medications: atazanavir clopidogrel nelfinavir This medicine may also interact with the following medications: ampicillin certain medicines for anxiety or sleep certain medicines that treat or prevent blood clots like warfarin cyclosporine diazepam digoxin disulfiram iron salts phenytoin prescription medicine for fungal or yeast infection like itraconazole, ketoconazole, voriconazole saquinavir tacrolimus What if I miss a dose? If you miss a dose, take it as soon as you can. If it is almost time for your next dose, take only that dose. Do not take double or extra doses. Where should I keep my medicine? Keep out of the reach of children. Store at room temperature between 20 and 25 degrees C (68 and 77 degrees F). Protect from light and moisture. Throw away any unused medicine after the expiration date. What should I tell my health care provider before I take this medicine? They need to know if you have any of these conditions: black or bloody stools chest pain difficulty swallowing have had heartburn for over 3 months have heartburn with dizziness, lightheadedness or sweating liver disease stomach pain unexplained weight loss vomiting with blood wheezing an unusual or allergic reaction to omeprazole, other medicines, foods, dyes, or preservatives or trying to get breast-feeding What should I watch for while using this medicine? It can take several days before your heartburn gets better. Check with your doctor or health doggy daycare activities director if your condition does not start to get better, or if it gets worse. Do not treat diarrhea with over the counter products. Contact your doctor if you have diarrhea that lasts more than 2 days or if it is severe and watery. Do not treat yourself for heartburn with this medicine for more than 14 days in a row. You should only use this medicine for a 2-week treatment period once every 4 months. If your symptoms return shortly after your therapy is complete, or within the 4 month time frame, call your doctor or health doggy daycare activities director. You have been given the following additional information: Gastritis Vs. Ulcer Diet, [place] (Adult) Omeprazole Magnesium Gastro-resistant tablet (Electronically signed by Ba Hood MD 05/27/2016 23:11)
--- NOTE | 2016-05-27 23:11 | ED MED RECONCILIATION SUMMARY ---
Patient: ANGIE PAUL Medication Reconciliation Report [facility] VisitID: [id number] [address] [place] [address] 40y, M Registration Date/Time: 05/25/2016 Weight: 108.8 kg Height/Length: 68 in. BMI: 36.5 ALLERGIES: Amoxicillin The patient's Home Medications are listed below: NONE. The source(s) of the original Home Medication information: patient The following Medications were given to the patient in the Emergency Department: PHENERGAN [IVP] IVP 12.5 mg, administered: 05/25/2016 2:37:00 AM Demerol [IVP] IVP 12.5 mg, administered: 05/25/2016 2:40:00 AM IV NS IV Fluids bolus 0, then 250 mL/hr, administered: 05/25/2016 2:51:00 AM Demerol [IVP] IVP 12.5 mg, administered: 05/25/2016 3:36:00 AM GI COCKTAIL WHITE [PO] PO 50 mL, administered: 05/25/2016 4:40:00 AM Demerol [IVP] IVP 12.5 mg, administered: 05/25/2016 5:25:00 AM Protonix [PO] PO 40 mg, administered: 05/25/2016 8:01:00 AM Carafate [PO] PO 2 gm, administered: 05/25/2016 8:02:00 AM The following Medications were prescribed to the patient: Hydrocodone/APAP 5mg/325mg: take 1 to 2 orally every 6 hours as needed for pain. Dispense fifteen (15). No refills. -- Ba Hood MD Carafate 1 gm tablets: take 1 orally four times daily (1 hour before meals and at bedtime). Dispense sixty (60). No refills. Substitution is permissible. -- Ba Hood MD Prilosec 40 mg capsules: take 1 capsule orally every day for 10 days. Dispense ten (10). No refill. Substitution is permissible. -- Ba Hood MD
--- NOTE | 2016-05-27 23:11 | ED DISCHARGE INSTRUCTIONS ---
Patient: ANGIE PAUL General Instructions [facility] VisitID: [id number] [place] [address] 40y, M Registration Date/Time: 05/25/2016 Acute gastritis. No alcoholic gastritis or hemorrhagic gastritis. INSTRUCTIONS Avoid alcohol and NSAIDS. NSAIDS include aspirin, ibuprofen (Advil) and naproxen (Aleve). Avoid spicy foods. caffeine. Warnings: Further evaluation is necessary. GENERAL WARNINGS: Return or contact your physician immediately if your condition worsens or changes unexpectedly, if not improving as expected, or if other problems arise. Prescription Medications: Hydrocodone/APAP 5mg/325mg: take 1 to 2 orally every 6 hours as needed for pain. Dispense fifteen (15). No refills. Carafate 1 gm tablets: take 1 orally four times daily (1 hour before meals and at bedtime). Dispense sixty (60). No refills. Substitution is permissible. Prilosec 40 mg capsules: take 1 capsule orally every day for 10 days. Dispense ten (10). No refill. Substitution is permissible. Follow-up: Follow up with your doctor in five days. Call for an appointment. Understanding of the discharge instructions verbalized by patient and family. ADDITIONAL INFORMATION Gastritis Versus Ulcer (No Antibiotic Tx) The symptoms of gastritis and peptic ulcer are very similar. Both can cause a dull ache or burning pain in the upper abdomen. Other symptoms include nausea, vomiting, loss of appetite, and belching or bloating. Blood in the vomit or stools (red or black) is a sign of bleeding in the stomach. This requires immediate medical attention. A Peptic Ulcer is an open sore in the lining of the stomach or duodenum (upper intestine). The most common cause of peptic ulcer disease is a bacterial infection (H pylori) in the stomach. Another common cause is taking anti-inflammatory medications (such as ibuprofen, prednisone, and aspirin). Gastritis is an irritation of the stomach lining. It can be acute (recent) or chronic (lasting a long time). Gastritis can be caused by overuse of alcohol or anti-inflammatory medications (such as aspirin, ibuprofen, prednisone). H pyloriinfection can also cause chronic gastritis. Tests for H pyloriare used to screen for bacterial infection. If no infection is found, ulcer and gastritis can be treated by stopping the cause, such as anti-inflammatory medications, alcohol, caffeine, and tobacco, and treating with antacids plus an acid saundra medication. If H pylori infection is found, antibiotics will be prescribed along with an acid saundra. Persons 55 years and older may undergo other tests before treatment is started. Two common tests are used to evaluate your symptoms. An upper GI series is an x-ray taken after you drink a chalky liquid called barium. This coats the stomach and allows an ulcer to show up on the x-ray. Another test is called endoscopy during which a long thin tube called an endoscope is passed down your throat to the stomach. A camera at the end of the scope allows the doctor to view inside the stomach to check the cause of your symptoms. Home Care: Take the prescribed acid saundra medication for the full course of treatment even if you begin to feel better sooner. This medication can take up to several days to fully control your symptoms. If you cant afford the prescribed medication, you can try [id number] acid blockers, such as Pepcid AC, Tagamet, Zantac, or Aciphex. If these do not relieve your symptoms, a stronger acid-saundra can be tried, such as Prilosec OTC. If you have been prescribed an antibiotic to treat H pyloriinfection, finish the full course of medication. Do so even if you begin to feel better sooner. If you stop the medication too soon, the infection can return and be harder to treat. You can use antacids, such as Tums, Rolaids, Mylanta, or Maalox, for pain. This will be useful the first few days after starting acid blockers when the blockers havent started working yet. Follow the directions on the label. Liquid antacids may work better than tablets. Note that antacids can interfere with absorption of certain medications. Specifically, do not take Tagamet (cimetidine), Zantac (ranitidine), or Carafate (sucralfate) within 1 hour of taking an antacid. Talk with your pharmacist if you have any questions. Although foods do not cause an ulcer, symptoms can be worsened by certain foods. Limit or avoid fatty, fried, and spicy foods, as well as coffee, chocolate, mint, and foods with high acid content such as tomatoes and citrus fruit and juices (orange, grapefruit, lemon). Avoid alcohol, caffeine, and tobacco, which can delay healing. Avoid aspirin and anti-inflammatory medications such as ibuprofen (Advil, Motrin) and naproxen (Naprosyn, Aleve). Acetaminophen (Tylenol) is safe to use. Do not take more than the amount listed on the label. Follow Up with your doctor or as advised. Further testing may be needed. If you do not begin to improve over the next 4 days, contact your doctor. If you had tests, youll be notified of any new findings that affect your care. Get Prompt Medical Attention if any of the following occur: Stomach pain gets worse or moves to the lower right abdomen (appendix area) Chest pain appears or gets worse, or spreads to the back, neck, shoulder, or arm Frequent vomiting (cant keep down liquids) Blood in the stool or vomit (red or black in color) Feeling weak or dizzy, fainting, or trouble breathing Fever of 100.4F (38C) or higher, or as directed by your healthcare provider [place] Diet A bland diet is used for patients with an upset stomach. It consists of foods that are mild and easy to digest. It is better to eat small frequent meals rather than three large meals a day. BEVERAGES OK: Fruit juices, non-caffeinated teas and coffee, non-carbonated haley AVOID: Carbonated beverage, caffeinated tea and coffee, all alcoholic beverages BREAD OK: Refined white, wheat or rye bread, dawson or soda crackers, [place] toast, plain rolls, bagels AVOID: Whole-grain bread CEREAL OK: Refined cereals: cooked or ready to eat AVOID: Whole grain cereals and granola, or those containing bran, seeds or nuts DESSERTS OK: Peanut butter and all others except those to "avoid" AVOID: Chocolate, cocoa, coconut, popcorn, nuts, seeds, jam, marmalade FRUITS OK: Canned, cooked, frozen or fresh fruits without seeds or tough skin AVOID: Olives, skin and seeds of fruit MEATS OK: All fresh or preserved meat, fish and fowl AVOID: Any that are prepared with those spices to "avoid" CHEESE & EGGS OK: Eggs, cottage cheese, cream cheese, other cheeses AVOID: All cheeses made with those spices to "avoid" POTATOES & PASTA OK: Potato, rice, macaroni, noodles, spaghetti AVOID: None SOUPS OK: All soups without heavy seasoning AVOID: Soups made with those spices to "avoid" VEGETABLES OK: Canned, cooked, fresh or frozen mildly flavored vegetables without seeds, skins or coarse fiber AVOID: Vegetables prepared with those spices to "avoid"; skin and seeds of vegetables and those with coarse fiber SPICES OK: Salt, lemon and mohe[place] juice, vinegar, all extracts, [place], cinnamon, thyme, mace, allspice, paprika AVOID: [place] powder, cloves, pepper, seed spices, garlic, gravy pickles, highly seasoned salad dressings Omeprazole Magnesium Gastro-resistant tablet What is this medicine? OMEPRAZOLE (oh ME pray zol) prevents the production of acid in the stomach. It is used to treat the symptoms of heartburn. You can buy this medicine without a prescription. This product is not for long-term use, unless otherwise directed by your doctor or health daycare provider. How should I use this medicine? Take this medicine by mouth. Follow the directions on the product label. If you are taking this medicine without a prescription, take one tablet every day. Do not use for longer than 14 days or repeat a course of treatment more often than every 4 months unless directed by a doctor or healthcare professional. Take your dose at regular intervals every 24 hours. Swallow the tablet whole with a drink of water. Do not crush, break or chew. This medicine works best if taken on an empty stomach 30 minutes before breakfast. If you are using this medicine with the prescription of your doctor or healthcare professional, follow the directions you were given. Do not take your medicine more often than directed. Talk to your veterinary receptionist regarding the use of this medicine in children. Special care may be needed. What side effects may I notice from receiving this medicine? Side effects that you should report to your doctor or health daycare provider as soon as possible: allergic reactions like skin rash, itching or hives, swelling of the face, lips, or tongue bone, muscle or joint pain breathing problems chest pain or chest tightness dark yellow or brown urine diarrhea dizziness fast, irregular heartbeat feeling faint or lightheaded fever or sore throat muscle spasm palpitations redness, blistering, peeling or loosening of the skin, including inside the mouth seizures tremors unusual bleeding or bruising unusually weak or tired yellowing of the eyes or skin Side effects that usually do not require medical attention (Report these to your doctor or health daycare provider if they continue or are bothersome.): constipation dry mouth headache loose stools nausea What may interact with this medicine? Do not take this medicine with any of the following medications: atazanavir clopidogrel nelfinavir This medicine may also interact with the following medications: ampicillin certain medicines for anxiety or sleep certain medicines that treat or prevent blood clots like warfarin cyclosporine diazepam digoxin disulfiram iron salts phenytoin prescription medicine for fungal or yeast infection like itraconazole, ketoconazole, voriconazole saquinavir tacrolimus What if I miss a dose? If you miss a dose, take it as soon as you can. If it is almost time for your next dose, take only that dose. Do not take double or extra doses. Where should I keep my medicine? Keep out of the reach of children. Store at room temperature between 20 and 25 degrees C (68 and 77 degrees F). Protect from light and moisture. Throw away any unused medicine after the expiration date. What should I tell my health care provider before I take this medicine? They need to know if you have any of these conditions: black or bloody stools chest pain difficulty swallowing have had heartburn for over 3 months have heartburn with dizziness, lightheadedness or sweating liver disease stomach pain unexplained weight loss vomiting with blood wheezing an unusual or allergic reaction to omeprazole, other medicines, foods, dyes, or preservatives or trying to get breast-feeding What should I watch for while using this medicine? It can take several days before your heartburn gets better. Check with your doctor or health daycare provider if your condition does not start to get better, or if it gets worse. Do not treat diarrhea with over the counter products. Contact your doctor if you have diarrhea that lasts more than 2 days or if it is severe and watery. Do not treat yourself for heartburn with this medicine for more than 14 days in a row. You should only use this medicine for a 2-week treatment period once every 4 months. If your symptoms return shortly after your therapy is complete, or within the 4 month time frame, call your doctor or health daycare provider. You have been given the following additional information: Gastritis Vs. Ulcer Diet, [place] (Adult) Omeprazole Magnesium Gastro-resistant tablet (Electronically signed by Ba Hood MD 05/27/2016 23:11)
== END 2016-05-25 07:55 | disposition home or self-care (01) ==
LOC: ED SRH 01:54
DX: K29.00 Acute gastritis without bleeding (principal); Z88.1 Allergy status to other antibiotic agents; Z90.89 Acquired absence of other organs
CPT/HCPCS: 90100; 91556; 91585; 92235; 92530; 95059